=== PATIENT | male | born 1985 | race Two or more races ===

== ENCOUNTER 2024-03-06 12:17 | Inpatient (IN) | payer MEDICAID, SELFPAY ==
[2024-03-06] VITALS (9 sets, daily range): BP systolic 136–166; BP diastolic 95–102; PULSE 99–141; RESP 16–20; TEMP 36.1–37.4; O2SAT 97–98; BMI 25.5; BMI 26.2
--- NOTE | 2024-03-06 12:27 | EKG_ITS ---
[facility] Test Date: 2024-03-06 Pat Name: EVELYN MARTIN Department: Room: - Gender: Male [employer]: : 1985 Requested By: Inder Cheung (STEVE) Order Number: [id number] Reading MD: Inder Cheung (STEVE) Measurements Intervals [place] Rate: 130 P: 70 MI: 152 QRS: -9 QRSD: 82 T: 51 QT: 301 QTc: 443 Interpretive Statements SINUS TACHYCARDIA ABNORMAL RHYTHM ECG No previous ECG available for comparison /store/S0/[id number].pdf
--- NOTE | 2024-03-06 12:35 | EDNOTE_ITS ---
<Statement entered by Marleny Fournier MD - 03/07/24 16:22> As co-signing physician, I was present and available for consult prn. I concur with the plan and care as documented by the midlevel provider. ED General RME/HPI General Chief complaint: General Adult/Misc Complain Stated complaint: HIGH BLOOD SUGAR, HIGH BLOOD SUGAR Time Seen by Provider: 03/06/24 12:28 Arrival date/time: 03/06/24 12:17 CC: Shaking HPI patient presents to the ER with shaking. Patient admits to drinking every day last drink was last night. Patient has no medicines no allergies no primary care doctor. Patient denies nausea vomiting excessive urination excessive thirst no diarrhea. Patient admits to drinking Hussein Harvey 1 bottle a day for a long time . Related Data Home Medications ?Medication ?Instructions ?Recorded ?Confirmed No Known Home Medications 03/06/24 03/06/24 Allergies Allergy/AdvReac Type Severity Reaction Status Date / Time No Known Allergies Allergy Verified 03/06/24 12:19 Review of Systems Review of Systems Narrative Review of Systems: GEN: No fever, no chills, no weight loss EYES: No discharge, no visual changes, no pain HEENT: No ear pain, no congestion, no sore throat PULM: No shortness of breath, no cough, no congestion CV: No chest pain, no dyspnea on exertion, no palpitations GI: No nausea, no vomiting, no diarrhea, no pain, no constipation : No frequency, no urgency, no dysuria MUSC/SKEL:+shaking, No joint pain, no back pain SKIN: No rash PSYCH: No hallucinations, no depression HEME/LYMPH: No easy bleeding or bruising tendencies NEURO: No weakness, no headache Past Medical History Social History SMOKING STATUS: Never smoker ED Exam Narrative Physical exam: [General: In moderate discomfort not in any acute distress. CIWA 7 Head normocephalic HEENT: Within acceptable limits Neck is supple nontender Chest equal chest rise nontender to palpation Respiratory: Clear to auscultation no wheezes crackles or rubs CV: Rate rhythm is regular no murmurs rubs or clicks Abdomen is distended secondary to body habitus soft nontender no masses positive bowel sounds all 4 quadrants Back: No CVA tenderness no spinous process tenderness from cervical spine thoracic and lumbar spine Skin: Intact no petechiae rash induration ulceration or crepitus Extremities: Upper extremity tremens. Moving all extremity against resistance cap refill less than 2 seconds neurosensory intact Neuro: Awake alert oriented x3 Glascow coma 15 no focal deficits] Course Quality Measures none Orders Category Date Time Status Admit to Inpatient Status Routine Admission 03/06/24 16:12 Active Patient Condition Routine Admission 03/06/24 16:09 Ordered EKG (ED ONLY) *Do not use* NOW Care 03/06/24 12:27 Completed Neuro Check Q4H Care 03/06/24 16:09 Active Notify provider NEEDED Care 03/06/24 16:09 Active Saline [Insert IV] NOW Care 03/06/24 12:34 Active Seizure precautions NEEDED Care 03/06/24 16:10 Active Sequential Compression Device QSHIFT Care 03/06/24 16:09 Active EKG (ED Only) Stat Exams 03/06/24 12:27 Draft ABG [Arterial Blood Gas] Stat Lab 03/06/24 15:10 Completed Alcohol, Blood Medical Stat Lab 03/06/24 12:51 Completed B-Type Natriuretic Peptide Stat Lab 03/06/24 12:51 Completed Beta Hydroxybutyrate Stat Lab 03/06/24 12:51 Completed CBC AM DRAW Lab 03/07/24 05:00 Completed CBC AM DRAW Lab 03/08/24 05:00 Ordered CBC AM DRAW Lab 03/09/24 05:00 Ordered CBC Stat Lab 03/06/24 12:51 Completed Comprehensive Metabolic Panel AM DRAW Lab 03/07/24 05:42 Completed Comprehensive Metabolic Panel AM DRAW Lab 03/08/24 05:00 Ordered Comprehensive Metabolic Panel AM DRAW Lab 03/09/24 05:00 Ordered Comprehensive Metabolic Panel Stat Lab 03/06/24 12:51 Completed Drug Screen,Urine Stat Lab 03/06/24 14:25 Completed Hemoglobin A1C [Glycohemoglobin w (eAG)] Stat Lab 03/06/24 12:51 Completed Hepatitis Acute Panel Routine Lab 03/06/24 16:20 Completed LDH (Lactate Dehydrogenase) Stat Lab 03/06/24 12:51 Completed Lactate (Lactic Acid) Stat Lab 03/06/24 16:20 Completed Lipid Panel AM DRAW Lab 03/07/24 05:42 Completed Magnesium AM DRAW Lab 03/07/24 05:42 Completed Magnesium AM DRAW Lab 03/08/24 05:00 Ordered Magnesium AM DRAW Lab 03/09/24 05:00 Ordered Magnesium Stat Lab 03/06/24 12:51 Completed Partial Thromboplastin Time AM DRAW Lab 03/07/24 05:42 Completed Partial Thromboplastin Time Stat Lab 03/06/24 12:51 Completed Phosphorous AM DRAW Lab 03/07/24 05:42 Completed Phosphorous AM DRAW Lab 03/08/24 05:00 Ordered Phosphorous AM DRAW Lab 03/09/24 05:00 Ordered Prothrombin Time with INR AM DRAW Lab 03/07/24 05:42 Completed Prothrombin Time with INR Stat Lab 03/06/24 12:51 Completed Thyroid Stimulating Hormone AM DRAW Lab 03/07/24 05:42 Completed Troponin I Stat Lab 03/06/24 12:51 Completed Urinalysis Stat Lab 03/06/24 14:25 Completed Albuterol/Ipratr Rt Johnna [Duoneb Rt Johnna] Med 03/06/24 16:09 Active 3 ml INH Q2HR PRN Diazepam Inj [Valium Inj] Med 03/06/24 12:38 Discontinued 10 mg IVP X1 ONE Folic Acid Inj Med 03/06/24 16:15 Active 1 mg IVP QDAY Folic Acid Inj Med 03/06/24 13:26 Discontinued 1 mg IVP X1 ONE INSULIN LISPRO (AdmeLOG) [HumaLOG] Med 03/06/24 16:06 Discontinued 10 unit SC X1 ONE Magnesium Sulfate 2 GM Ivpb [Magnesium Sulfate Ivpb] Med 03/06/24 16:06 Discontinued 2 gm in 50 ml IV X1 Ondansetron Inj [Zofran Inj] Med 03/06/24 16:09 Active 4 mg IV Q6H PRN PHENobarbital Inj Med 03/06/24 15:55 Discontinued 230 mg IV X1 ONE Pantoprazole Inj [Protonix Inj] Med 03/06/24 16:15 Active 40 mg IVP QDAY Ringers Lactated 1000 ml [Lactated Ringers] 1,000 ml Med 03/06/24 16:08 Discontinued IV 500 mls/hr Sodium Chloride 0.9% 1000 ml [Ns] 1,000 ml Med 03/06/24 12:34 Discontinued IV 999 mls/hr Sodium Chloride 0.9% 1000 ml [Ns] 1,000 ml Med 03/06/24 15:07 Discontinued IV 999 mls/hr Thiamine Inj [Vitamin B-1 Inj] Med 03/06/24 16:15 Active 100 mg IVP QDAY Thiamine Inj [Vitamin B-1 Inj] 100 mg Med 03/06/24 13:26 Discontinued Sodium Chloride 0.9% [Ns] 100 ml IV X1 Code Status Routine Oth 03/06/24 16:09 Ordered Oxygen Delivery PRN RT 03/06/24 16:09 Active Vital Signs Vital signs: Vital Signs Temperature 99.4 F 03/06/24 12:28 Pulse Rate 141 H 03/06/24 12:28 Respiratory Rate 20 03/06/24 12:28 Blood Pressure 166/102 H 03/06/24 12:28 Pulse Oximetry (%) 97 03/06/24 12:28 Oxygen Delivery Method Room Air 03/06/24 12:[address] [facility] Patient data External records reviewed:: [facility] previous records Clinical information provided by:: patient and family Social determinants that could affect healthcare access:: alcohol use Patient has the following chronic illnesses:: Alcoholism How is presenting disease/condition affected by chronic disease/condition?: e xacerbated by Evaluation data The following diagnostics were reviewed and interpreted by me:: lab results, radiology exam(s) and EKG tracing(s) Lab and/or radiology exams considered but not ordered:: EKG performed at 1242 ventricular rate of 129 HI interval 160 QRS of 82 QTc of 375 no old EKG for comparison this is a tachycardia. CBC shows no leukocytosis there is an mild anemia no thrombocytopenia CMP shows a hyponatremia probably pseudohyponatremia hyperkalemia no renal impairment. Gap of 21. No transaminitis or T. bili elevation ABG shows a pH of 7.47 Glucose initially was 399 currently glucose is 2 10:58 units of insulin subcu. Interpretation Summary: Patient FELIX was initially 7 given 10 of Valium IV which calmed him down now the tremors are slowly returning at 1536. Glucose level is decreasing the patient is not in DKA. Patient's case was discussed with Dr. Camarillo who agrees to accept the patient for admission for Dr. Peraza. Medications Medications considered but not ordered:: None Medication administrations:: Medication Administration History Albuterol/Ipratropium (Albuterol/Ipratropium (Duoneb) Rt Johnna 3 Ml Nebu) 3 ml INH Q2HR PRN PRN Reason: SHORTNESS OF BREATH OR WHEEZE Stop: 04/05/24 16:08 Atorvastatin Calcium (Atorvastatin Calcium 20 Mg Tablet) 20 mg PO HS [facility] Stop: 04/06/24 20:59 Chlordiazepoxide HCl (Chlordiazepoxide Hcl 25 Mg Capsule) 25 mg PO Q8HR [facility] Stop: 03/11/24 17:44 Last Admin: 03/07/24 06:04 Dose: 25 mg Documented By: Admin: 03/06/24 22:07 Dose: 25 mg Documented By: Admin: 03/06/24 18:14 Dose: 25 mg Documented By: GM Dextrose (Dextrose 50%-Water Inj 50 Ml Syringe) 50 ml IV Q15MIN PRN PRN Reason: BG <50 OR BG <70 & pt unresponsive Stop: 04/05/24 16:16 Folic Acid (Folic Acid Inj 1 Mg/0.2 Ml) 1 mg IVP QDAY [facility] Stop: 04/05/24 16:14 Last Admin: 03/07/24 08:16 Dose: 1 mg Documented By: Admin: 03/06/24 16:11 Dose: Not Given Documented By: GM Non-Admin Reason: Duplicate Medication on eMAR Glucagon (Glucagon Inj 1 Mg Vial) 1 mg IM Q15MIN PRN PRN Reason: BG <70, and no IV access Insulin Human Lispro (Insulin Lispro (Admelog) 1 Unit/0.01 Ml Unit) 0 unit SC [facility]; Protocol Stop: 04/05/24 16:59 Last Admin: 03/07/24 11:24 Dose: 4 unit Documented By: TONY Co-signed By: HI Admin: 03/07/24 07:47 Dose: 4 unit Documented By: TONY Co-signed By: HI Admin: 03/06/24 22:07 Dose: 2 unit Documented By: TOMMY Co-signed By: WB Admin: 03/06/24 17:31 Dose: Not Given Documented By: KM Non-Admin Reason: Cancelled by Provider Ondansetron HCl (Ondansetron Inj 2 Mg/Ml Inj 2 Ml) 4 mg IV Q6H PRN; Protocol PRN Reason: NAUSEA OR VOMITING Stop: 04/05/24 16:08 Pantoprazole Sodium (Pantoprazole Inj 40 Mg Vial) 40 mg IVP QDAY [facility] Stop: 04/05/24 16:14 Last Admin: 03/07/24 08:16 Dose: 40 mg Documented By: Admin: 03/06/24 17:24 Dose: 40 mg Documented By: ARELIS Thiamine HCl (Thiamine Inj 100 Mg/Ml Vial 2 Ml) 100 mg IVP QDAY ASHLEY Stop: 04/05/24 16:14 Last Admin: 03/07/24 08:16 Dose: 100 mg Documented By: Admin: 03/06/24 16:11 Dose: Not Given Documented By: PIPPA Non-Admin Reason: Duplicate Medication on eMAR Discontinued Medications Diazepam (Diazepam Inj 5 Mg/Ml Vial 2 Ml) 10 mg IVP X1 ONE Stop: 03/06/24 12:39 Last Admin: 03/06/24 12:55 Dose: 10 mg Documented By: PIPPA Folic Acid (Folic Acid Inj 1 Mg/0.2 Ml) 1 mg IVP X1 ONE Stop: 03/06/24 13:27 Last Admin: 03/06/24 13:50 Dose: 1 mg Documented By: PIPPA Sodium Chloride (Ns) 1,000 mls @ 999 mls/hr IV .Q1H1M ONE Stop: 03/06/24 13:34 Last Infusion: 03/06/24 13:55 Dose: Infused Documented By: Admin: 03/06/24 12:58 Dose: 999 mls/hr Documented By: PIPPA Thiamine HCl 100 mg/ Sodium (Chloride) 101 mls @ 202 mls/hr IV X1 ONE Stop: 03/06/24 13:55 Last Infusion: 03/06/24 14:30 Dose: Infused Documented By: Admin: 03/06/24 13:55 Dose: 202 mls/hr Documented By: PIPPA Sodium Chloride (Ns) 1,000 mls @ 999 mls/hr IV .Q1H1M ONE Stop: 03/06/24 16:07 Last Infusion: 03/06/24 16:20 Dose: Infused Documented By: Admin: 03/06/24 15:12 Dose: 999 mls/hr Documented By: ARELIS Magnesium Sulfate (Magnesium Sulfate Ivpb) 2 gm in 50 mls @ 25 mls/hr IV X1 ONE Stop: 03/06/24 18:05 Last Infusion: 03/06/24 19:28 Dose: Infused Documented By: Admin: 03/06/24 17:17 Dose: 25 mls/hr Documented By: ARELIS Lactated Ringer's (Lactated Ringers) 1,000 mls @ 500 mls/hr IV .Q2H ONE Stop: 03/06/24 18:07 Last Admin: 03/06/24 17:18 Dose: Not Given Documented By: PIPPA Non-Admin Reason: Discontinued Sodium Chloride (Ns) 1,000 mls @ 40 mls/hr IV .Q24H ASHLEY Stop: 04/05/24 17:59 Lactated Ringer's (Lactated Ringers) 1,000 mls @ 150 mls/hr IV .Q6H40M ONE Stop: 03/06/24 22:47 Last Admin: 03/06/24 18:18 Dose: 150 mls/hr Documented By: PIPPA Sodium Chloride (Ns) 1,000 mls @ 999 mls/hr IV .Q1H1M ONE Stop: 03/06/24 17:35 Last Infusion: 03/06/24 18:19 Dose: Infused Documented By: Admin: 03/06/24 17:16 Dose: 999 mls/hr Documented By: ARELIS Magnesium Sulfate (Magnesium Sulfate Ivpb) 2 gm in 50 mls @ 25 mls/hr IV X1 ONE Stop: 03/06/24 20:29 Last Admin: 03/06/24 19:39 Dose: 25 mls/hr Documented By: INDIGO Lactated Ringer's (Lactated Ringers) 500 mls @ 999 mls/hr IV .Q31M ONE Stop: 03/07/24 11:26 Lactated Ringer's (Lactated Ringers) 1,000 mls @ 999 mls/hr IV .Q1H1M ONE Stop: 03/07/24 12:06 Last Admin: 03/07/24 11:19 Dose: 999 mls/hr Documented By: TONY Insulin Glargine (Insulin Glargine (Lantus) 5 Unit/0.05 Ml (Per 5 Units)) 10 unit SC HS ASHLEY Stop: 04/05/24 20:59 Insulin Human Lispro (Insulin Lispro (Admelog) 1 Unit/0.01 Ml Unit) 10 unit SC X1 ONE Stop: 03/06/24 16:07 Last Admin: 03/06/24 17:25 Dose: 10 unit Documented By: ARELIS Co-signed By: PIPPA Phenobarbital Sodium (Phenobarbital Inj 130 Mg/1 Ml Vial) 230 mg IV X1 ONE Stop: 03/06/24 15:56 Last Admin: 03/06/24 16:07 Dose: 230 mg Documented By: ROSE Phenobarbital Sodium (Phenobarbital Inj 130 Mg/1 Ml Vial) 150 mg IV Q8HR ASHLEY Stop: 03/08/24 14:01 Last Admin: 03/07/24 06:05 Dose: 150 mg Documented By: Admin: 03/06/24 22:08 Dose: 150 mg Documented By: TOMMY Potassium Chloride (Potassium Chloride 20 Meq Tabcr) 40 meq PO X1 ONE Stop: 03/06/24 16:23 Last Admin: 03/06/24 17:24 Dose: 40 meq Documented By: ARELIS Potassium Chloride (Potassium Chloride 20 Meq Tabcr) 40 meq PO X1 ONE Stop: 03/06/24 19:01 Last Admin: 03/06/24 19:38 Dose: 40 meq Documented By: INDIGO Potassium Phos/Sodium Phos (N[facility] 1 Packet (1.5 Gm)) 1 packet PO X1 ONE Stop: 03/07/24 08:58 Last Admin: 03/07/24 10:21 Dose: 1 packet Documented By: TONY None Consultations Consultation(s) initiated? (list below): No Diagnosis Differential Diagnosis ED Complaint MDM: Alcohol withdrawal diabetes new onset sepsis Most likely diagnosis given after review of the tests above:: Alcohol withdrawal diabetes new onset sepsis Admission Indicated Admission indicated?: indicated Explain why admission is indicated or not indicated:: Requires further medical management Admission Request Was there a request for admission?: No Disposition Plan Disposition Plan: Admit Medical Decision Making Differential Diagnosis Differential Diagnosis: Alcohol withdrawal diabetes new onset sepsis Lab Data 03/07/24 05:00 03/07/24 05:42 Labs: Lab Results 03/06/24 03/06/24 03/06/24 Range/Units 12:51 14:25 15:10 WBC 8.5 (3.8-10.6) Thou/mm3 RBC 3.85 L (4.50-5.90) Miln/mm3 Hgb 11.1 L (13.5-16.0) g/dL Hct 31.2 L (41.0-53.0) % MCV 81 (80-100) fL MCH 28.8 (25.0-35.0) pg MCHC 35.6 (31.0-37.0) g/dl RDW Std Deviation 41.1 (35.1-43.9) fL Plt Count 70 L (140-440) Thou/mm3 Neut % (Auto) 76 (37-80) % Lymph % (Auto) 14 (10-50) % [place] % (Auto) 7 (0-12) % Eos % (Auto) 0 (0-10) % Baso % (Auto) 2 (0-2.5) % Neut # (Auto) 6.5 (1.8-7.7) Thou/mm3 Lymph # (Auto) 1.2 (1.0-4.8) Thou/mm3 [place] # (Auto) 0.6 (0.0-0.8) Thou/mm3 Eos # (Auto) 0.0 (0.0-0.5) Thou/mm3 Baso # (Auto) 0.2 (0.0-0.2) Thou/mm3 Immature Gran # (Auto) 0.03 H (0.00-0.00) Thou/mm3 Absolute Nucleated RBC 0.00 (0.00-0.00) Thou/mm3 Immature Gran % 0 (0-0) % Nucleated RBC % 0 (0) /100 WBC PT 14.7 H (9.0-12.2) Seconds INR 1.4 H (0.9-1.3) APTT 29.7 (22.0-36.0) Seconds Puncture Site Left Radial ABG pH 7.46 H (7.35-7.45) ABG pCO2 32 (32.0-48.0) mmHg ABG pO2 93 (83-108) mmHg ABG HCO3 23 (20-26) mEq/L ABG O2 Saturation 98 (91-98) % ABG Base Excess -1 (-3-3) FiO2 21 % Sodium 124 L (136-145) mMol/L Potassium 3.3 L (3.4-5.1) mMol/L Chloride 86 L (98-107) mMol/L Carbon Dioxide 17.2 L (20.0-31.0) mMol/L Anion Gap 21 H (7-16) BUN < 5 L (9-23) mg/dL Creatinine 0.7 (0.6-1.3) mg/dL Estim Creat Clear Calc 131.7 (>60) mL/min eGFR > 60 (60 - ) See Note BUN/Creatinine Ratio 7 L (12-20) Ratio Glucose 399 H (74-106) mg/dL Estimated Ave Glu mg/dL 246 H (80-131) mg/dL Hemoglobin A1c 10.2 H (4.8-6.0) % Hgb Calculated Osmolality 263 L (275-295) Calcium 8.7 (8.3-10.6) mg/dL Corrected Calcium 8.9 (8.5-10.1) mg/dL Magnesium 1.5 L (1.6-2.6) mg/dL Total Bilirubin 4.3 H (0.3-1.2) mg/dL AST 144 H (0-34) U/L ALT 39 (10-49) U/L Alkaline Phosphatase 285 H (46-116) U/L Lactate Dehydrogenase 355 H (120-246) U/L Troponin I < 0.002 (0.0-0.045) ng/mL B-Natriuretic Peptide < 20 (0-100) pg/mL Total Protein 8.5 H (5.7-8.2) gm/dL Albumin 3.8 (3.5-5.0) gm/dL Globulin 4.7 H (2.3-3.5) gm/dL Albumin/Globulin Ratio 0.8 L (1.2-2.2) Beta-Hydroxybutyrate/Acetoacetate 0.1 (<0.6) mmol/L Ur Collection Type Clean Catch Urine Color Lt-Yellow (Lt Yel-Yel) Urine Clarity Clear (Clear/Hazy) Urine pH 6.5 (5.0-7.0) Ur Specific [place] 1.020 (1.001-1.035) Urine Protein Negative (Neg - Trace) Urine Glucose (UA) 4+ A (Negative) Urine Ketones Negative (Negative) Urine Blood Negative (Negative) Urine Nitrite Negative (Negative) Urine Bilirubin Negative (Negative) Urine Urobilinogen (Auto) Negative (0.0-1.0) mg/dL Ur Leukocyte Esterase Negative (Negative) Urine RBC 3 (0-3) /hpf Urine WBC 1 (0-5) /hpf Ur Squamous Epith Cells 0 (0-5) /hpf Urine Bacteria None (None) Urine Opiates Screen Negative (Negative) Urine Fentanyl Screen Negative (Negative) Ur Barbiturates Screen Negative (Negative) U Amphetamin/Meth Scrn Negative (Negative) U Benzodiazepines Scrn Negative (Negative) U Cocaine Metab Screen Negative (Negative) U Marijuana (THC) Screen Negative (Negative) Ethyl Alcohol 85.6 H (0-10.0) mg/dL Misc Test Result Platelets confirmed Discharge Plan Plan Patient Disposition: Admit Acute Care w/in Hospital Patient condition on transfer: Stable Problem List Clinical Impression: Diabetes mellitus, new onset, Alcohol withdrawal 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
[2024-03-06] MEDS: DIAZEPAM INJ 5 MG/ML VIAL 2 ML 10 MG IVP (12:55)
[2024-03-06] MEDS: SODIUM CHLORIDE 0.9% 1000 ML 1,000 ML 999 ML IV ×3 (12:58→17:16)
[2024-03-06 13:00] LABS: Basophils # (Auto) 0.2 Thou/mm3 (0.0-0.2); Basophils % (Auto) 2 % (0-2.5); Eosinophils % (Auto) 0 % (0-10); Hematocrit 31.2 % (41.0-53.0); Hemoglobin 11.1 g/dL (13.5-16.0); Immature Granulocytes % (Auto) 0 % (0-0); Immature Granulocytes Auto 0.03 Thou/mm3 (0.00-0.00); Lymphocytes # (Auto) 1.2 Thou/mm3 (1.0-4.8); Lymphocytes % (Auto) 14 % (10-50); Mean Corpuscular HGB Conc 35.6 g/dl (31.0-37.0); Mean Corpuscular Hemoglobin 28.8 pg (25.0-35.0); Mean Corpuscular Volume 81 fL (80-100); Monocytes # (Auto) 0.6 Thou/mm3 (0.0-0.8); Monocytes % (Auto) 7 % (0-12); Neutrophils # (Auto) 6.5 Thou/mm3 (1.8-7.7); Neutrophils % (Auto) 76 % (37-80); Nucleated Red Blood Cell % 0 /100 WBC (0); RDW Standard Deviation 41.1 fL (35.1-43.9); Red Blood Count 3.85 Miln/mm3 (4.50-5.90); White Blood Count 8.5 Thou/mm3 (3.8-10.6)
[2024-03-06 13:03] LABS: Beta Hydroxybutyrate 0.1 mmol/L (<0.6)
[2024-03-06 13:13] LABS: INR 1.4 (0.9-1.3); Partial Thromboplastin Time 29.7 Seconds (22.0-36.0); Prothrombin Time 14.7 Seconds (9.0-12.2)
[2024-03-06 13:15] LABS: Glucose Estimated Average 246 mg/dL (80-131); Hemoglobin A1C 10.2 % Hgb (4.8-6.0)
[2024-03-06 13:16] LABS: Platelet Count 70 Thou/mm3 (140-440)
[2024-03-06 13:18] LABS: Alanine Aminotransferase 39 U/L (10-49); Albumin, Serum 3.8 gm/dL (3.5-5.0); Albumin/Globulin Ratio 0.8 (1.2-2.2); Alcohol, Blood Medical 85.6 mg/dL (0-10.0); Alkaline Phosphatase 285 U/L (46-116); Anion Gap 21 (7-16); Aspartate Amino Transferase 144 U/L (0-34); BUN/Creatinine Ratio 7 Ratio (12-20); Bilirubin,Total 4.3 mg/dL (0.3-1.2); Blood Urea Nitrogen < 5 mg/dL (9-23); Calcium 8.7 mg/dL (8.3-10.6); Calcium (Corrected) 8.9 mg/dL (8.5-10.1); Carbon Dioxide 17.2 mMol/L (20.0-31.0); Chloride 86 mMol/L (98-107); Creatinine (Component) 0.7 mg/dL (0.6-1.3); Estimated Creatinine Clearance 131.7 mL/min (>60); Globulin 4.7 gm/dL (2.3-3.5); Glucose 399 mg/dL (74-106); LDH (Lactate Dehydrogenase) 355 U/L (120-246); Magnesium 1.5 mg/dL (1.6-2.6); Osmolality,Calculated 263 (275-295); Potassium 3.3 mMol/L (3.4-5.1); Sodium 124 mMol/L (136-145); Total Protein 8.5 gm/dL (5.7-8.2); Troponin I < 0.002 ng/mL (0.0-0.045); eGFR > 60 See Note
[2024-03-06 13:22] LABS: B-Type Natriuretic Peptide < 20 pg/mL (0-100)
[2024-03-06 13:42] LABS: Slide Review Platelets confirmed
[2024-03-06] MEDS: FOLIC ACID INJ 1 MG/0.2 ML IVP (13:50)
[2024-03-06] MEDS: THIAMINE INJ 100 MG in SODIUM CHLORIDE 0.9% 100 ML 202 MG IV (13:55)
[2024-03-06 14:37] LABS: Collection Type, Urine Clean Catch; Squamous Epithelial Cell,Urine 0 /hpf (0-5)
[2024-03-06 14:42] LABS: Bilirubin,Urine Negative (Negative); Blood,Urine Negative (Negative); Clarity,Urine Clear (Clear/Hazy); Color,Urine Lt-Yellow (Lt Yel-Yel); Glucose, Urine 4+ (Negative); Ketones,Urine Negative (Negative); Leukocyte Esterase,Urine Negative (Negative); Nitrite,Urine Negative (Negative); PH,Urine 6.5 (5.0-7.0); Protein,Urine Negative (Neg - Trace); RBC,Urine 3 /hpf (0-3); Urobilinogen,Urine Negative mg/dL (0.0-1.0); WBC,Urine 1 /hpf (0-5)
[2024-03-06 14:46] LABS: Amphetamine/Methamp Scrn,U Negative (Negative); Barbiturate Screen,Urine Negative (Negative); Benzodiazepines Screen,Urine Negative (Negative); Benzoylecgonine Screen, Ur Negative (Negative); Fentanyl Screen,Urine Negative (Negative); Opiate Screen,Urine Negative (Negative); THC Screen,Urine Negative (Negative)
[2024-03-06 15:23] LABS: Base Excess -1 (-3-3); HCO3 23 mEq/L (20-26); Inspired Oxygen, FIO2 21 %; O2 Saturation 98 % (91-98); PCO2 32 mmHg (32.0-48.0); PO2 93 mmHg (83-108); pH, Arterial 7.46 (7.35-7.45)
[2024-03-06 15:26] LABS: Allen Test Not Performed; Puncture Site Left Radial
[2024-03-06] MEDS: PHENobarbital INJ 130 MG/1 ML VIAL 230 MG IV (16:07)
--- NOTE | 2024-03-06 16:20 | ESHP_ITS ---
<Statement entered by Nicolás Camarillo MD - 03/06/24 18:10> 38-year-old male with no documented past medical history came to the ED with chief complaint of bilateral hand shaking. He has been drinking alcohol(Hussein Harvey) every day since few years. Labs showed elevated blood glucose, A1c of 10.1. Anion gap metabolic acidosis and lactic acidosis. Most likely secondary to dehydration and alcohol use. His beta hydroxybutyrate was negative. On examination his CIWA was 13 started on phenobarbital. Will follow-up on ultrasound of abdomen, [facility] protocol. Diabetic management. I discussed with and supervised my co-resident involved in the care of this patient. I agree with the assessment and plan as documented above. Nicolás Camarillo,PGY-3 Disclaimer: Despite multiple revisions, due to the dictation software being used, the document below may not be free of grammatical errors including phonetic/typographic errors. However, this does not deter from our commitment to providing health care in the patient's best interest in mind. Documentation for date of: 03/06/24 HPI History of Present Illness Chief complaint: Shaking History of present illness: HPI: Patient is a 38-year-old male with past medical history significant for GERD. Patient presents today with a chief complaint of shaking. Patient states that shaking started this morning. His last drink of alcohol was last night. He said that these episodes have happened in the past when he stopped drinking alcohol but he never came into the hospital. Denies any seizures, loss of consciousness, Headache, nausea/vomiting, diarrhea. Also denies any visual/auditory hallucinations at this time. Upon review patient also denies any cough, fever, chills, chest pain/pressure, SOB, PND, orthopnea. Also denies any sick contacts/recent travel. According to patient's he drinks 1 bottle of alcohol daily, she is unsure of which type. Since his father 1 year ago he started drinking alcohol heavily. ED course: BP 166/102, pulse 141, RR 20, temp 99.4 F, SpO2 97%. Labs significant for corrected NA 131, K3.3, CL 86, BUN 5, CR 0.7, Mg 1.5, HbA1c 10.2, PT 14.7, INR 1.4, Hb 11.1, HCT 31.2, PLT 70, T. bili 4.3, AST 144, ALT 39, ALP 285, LDH 355, troponin <0.002, BNP <20, beta hydroxybutyrate 0.1. Urinalysis significant for 4+ glucose. pH 7.46. EKG significant for sinus tachycardia, rate [address] changes. In the ED patient received diazepam 10 Mg IV x 1, normal saline 2L IVF bolus, thiamine 100 Mg x 1 and phenobarbital to 30 Mg IV x 1. Patient will be admitted for alcohol withdrawal and new onset uncontrolled diabetes mellitus type 2. Review of Systems Review of Systems Narrative Review of Systems: GENERAL: Denies fever/chills or diaphoresis. HEENT: Denies headaches or visual changes. Denies discharge. Neuro: As above CARDIO: Denies chest pain or palpitations. PULM: Denies SOB, couging or wheezing. GI: Denies abdominal pain, N/V/C/D. Reports having BMs. URO: Denies buring/itching/pain/urinary changes. MSK/EXT/SKIN: Denies joint/skeletal/muschle pain, issues/changes in upper or lower extremities, itchiness, or superficial pain. PSYCH: Cooperative, pleasant mood & affect. The rest of the review of systems is otherwise negative. 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 Baseline ambulates independently and carries out all ADLs independently Exam Vital Signs Temp Pulse Resp BP Pulse Ox O2 Del Method 98.6 F 113 H 20 142/96 H 97 Room Air 03/06/24 14:19 03/06/24 14:19 03/06/24 14:19 03/06/24 14:19 03/06/24 14:19 03/06/24 14:19 Narrative Exam Constitutional Alert, oriented x 3 and tremulous. Young male, anicteric, diaphoretic HEENT Vision grossly intact. Patent nares. Trachea midline. Poor dentition Respiratory Chest normal on inspection and clear auscultation bilaterally Cardiovascular S1 and S2 audible, RRR. No murmurs carotid bruit. No gross JVD. Abdominal Soft, obese and non tender to palpation in all quadrants. BS + Genitourinary No bladder tenderness, no flank pain. Normal to palpation Musculoskeletal Extremities tone within normal limits. No LE edema. Neurological CN II - XII grossly intact. Extremity motor and sensation grossly intact. A sterixis negative, resting tremor, intention tremor. Skin Warm, dry and intact. No apparent lesions. Psychiatric Patient has good affect, is cooperative Results: Labs 03/07/24 05:00 03/07/24 05:42 Labs: Short CBC 03/06/24 Range/Units 12:51 WBC 8.5 (3.8-10.6) Thou/mm3 Hgb 11.1 L (13.5-16.0) g/dL Hct 31.2 L (41.0-53.0) % Plt Count 70 L (140-440) Thou/mm3 BMP 03/06/24 12:51 Sodium 124 L Potassium 3.3 L Chloride 86 L Carbon Dioxide 17.2 L BUN < 5 L Creatinine 0.7 Glucose 399 H Calcium 8.7 Cardiac Enzymes 03/06/24 Range/Units 12:51 Troponin I < 0.002 (0.0-0.045) ng/mL Liver Function 03/06/24 Range/Units 12:51 Total Bilirubin 4.3 H (0.3-1.2) mg/dL AST 144 H (0-34) U/L ALT 39 (10-49) U/L Alkaline Phosphatase 285 H (46-116) U/L Albumin 3.8 (3.5-5.0) gm/dL Urine 03/06/24 Range/Units 14:25 Urine Color Lt-Yellow (Lt Yel-Yel) Urine Clarity Clear (Clear/Hazy) Urine pH 6.5 (5.0-7.0) Ur Specific [place] 1.020 (1.001-1.035) Urine Protein Negative (Neg - Trace) Urine Glucose (UA) 4+ A (Negative) ABG Interpretation ABG results: 03/06/24 15:10 ABG pH 7.46 H ABG pCO2 32 ABG pO2 93 ABG HCO3 23 ABG O2 Saturation 98 ABG Base Excess -1 Quality Measures Quality Measures VTE prophylaxis (SCDs) Medications Home Medications and Allergies Home Medications ?Medication ?Instructions ?Recorded ?Confirmed ?Type No Known Home Medications 03/06/24 03/06/24 History Allergies Allergy/AdvReac Type Severity Reaction Status Date / Time No Known Allergies Allergy Verified 03/06/24 12:19 Visit Medications Albuterol/Ipratropium (Albuterol/Ipratropium (Duoneb) Rt Johnna 3 Ml Nebu) 3 ml INH Q2HR PRN PRN Reason: SHORTNESS OF BREATH OR WHEEZE Stop: 04/05/24 16:08 Dextrose (Dextrose 50%-Water Inj 50 Ml Syringe) 50 ml IV Q15MIN PRN PRN Reason: BG <50 OR BG <70 & pt unresponsive Stop: 04/05/24 16:16 Folic Acid (Folic Acid Inj 1 Mg/0.2 Ml) 1 mg IVP QDAY [facility] Stop: 04/05/24 16:14 Last Admin: 03/06/24 16:11 Dose: Not Given Glucagon (Glucagon Inj 1 Mg Vial) 1 mg IM Q15MIN PRN PRN Reason: BG <70, and no IV access Magnesium Sulfate (Magnesium Sulfate Ivpb) 2 gm in 50 mls @ 25 mls/hr IV X1 ONE Stop: 03/06/24 18:05 Lactated Ringer's (Lactated Ringers) 1,000 mls @ 500 mls/hr IV .Q2H ONE Stop: 03/06/24 18:07 Sodium Chloride (Ns) 1,000 mls @ 40 mls/hr IV .Q24H ASHLEY Stop: 04/05/24 17:59 Insulin Glargine (Insulin Glargine (Lantus) 5 Unit/0.05 Ml (Per 5 Units)) 10 unit SC HS [facility] Stop: 04/05/24 20:59 Ondansetron HCl (Ondansetron Inj 2 Mg/Ml Inj 2 Ml) 4 mg IV Q6H PRN; Protocol PRN Reason: NAUSEA OR VOMITING Stop: 04/05/24 16:08 Pantoprazole Sodium (Pantoprazole Inj 40 Mg Vial) 40 mg IVP QDAY [facility] Stop: 04/05/24 16:14 Thiamine HCl (Thiamine Inj 100 Mg/Ml Vial 2 Ml) 100 mg IVP QDAY [facility] Stop: 04/05/24 16:14 Last Admin: 03/06/24 16:11 Dose: Not Given Discontinued Medications Diazepam (Diazepam Inj 5 Mg/Ml Vial 2 Ml) 10 mg IVP X1 ONE Stop: 03/06/24 12:39 Last Admin: 03/06/24 12:55 Dose: 10 mg Folic Acid (Folic Acid Inj 1 Mg/0.2 Ml) 1 mg IVP X1 ONE Stop: 03/06/24 13:27 Last Admin: 03/06/24 13:50 Dose: 1 mg Sodium Chloride (Ns) 1,000 mls @ 999 mls/hr IV .Q1H1M ONE Stop: 03/06/24 13:34 Last Infusion: 03/06/24 13:55 Dose: Infused Thiamine HCl 100 mg/ Sodium (Chloride) 101 mls @ 202 mls/hr IV X1 ONE Stop: 03/06/24 13:55 Last Infusion: 03/06/24 14:30 Dose: Infused Sodium Chloride (Ns) 1,000 mls @ 999 mls/hr IV .Q1H1M ONE Stop: 03/06/24 16:07 Last Admin: 03/06/24 15:12 Dose: 999 mls/hr Insulin Human Lispro (Insulin Lispro (Admelog) 1 Unit/0.01 Ml Unit) 10 unit SC X1 ONE Stop: 03/06/24 16:07 Phenobarbital Sodium (Phenobarbital Inj 130 Mg/1 Ml Vial) 230 mg IV X1 ONE Stop: 03/06/24 15:56 Last Admin: 03/06/24 16:07 Dose: 230 mg Assessment & Plan Plan Patient is a 38-year-old male with past medical history significant for GERD. Patient presents today with a chief complaint of shaking. Patient will be admitted for alcohol withdrawal and new onset uncontrolled diabetes mellitus type 2. 1. Alcohol withdrawal 2. Alcohol use disorder Patient states that shaking started this morning. His last drink of alcohol was last night. According to patient's he drinks 1 bottle of alcohol daily, she is unsure of which type. Since his father 1 year ago he started drinking alcohol heavily. On exam patient was tremulous, diaphoretic and in mild distress. Phenobarbital 260 Mg IV x 1 given in the ED Patient will be scheduled on phenobarbital and chlordiazepoxide. He will not be started on CIWA protocol as he is already on phenobarbital and benzodiazepines scheduled. Plan: - Negative swallow eval ? Head of bed elevation 30 degrees ? Seizure precautions ? Aspiration precautions ? Neurochecks every 4 hourly - Banana bag ? Phenobarbital 150 Mg IV 3 times daily ? Chlordiazepoxide 25 Mg p.o. Q8 hourly ? Patient extensively counseled on alcohol cessation 3. Newly diagnosed uncontrolled diabetes mellitus type 2 On admission patient's blood glucose 399. HbA1c 10.1% pH 7.46 and beta hydroxybutyrate 0.1. Urinalysis significant for 4+ glucose Lactic acid 7.6 DKA and HHS ruled out due to normal pH and negative beta hydroxybutyrate. Patient has newly diagnosed uncontrolled DM type II Patient received 2 L normal saline IVF bolus in the ED Plan: - Clear liquid diet with diabetic restrictions in place once SWALLOW eval passed ? Trend lactate every 6 hourly ? 1L normal saline IVF bolus ? Ringer's lactate maintenance fluid 150 cc?HR ? Insulin lispro 10 units SC x 1 ? Insulin glargine tablets SC at bedtime as basal insulin - Sliding scale insulin to cover for any glucose spikes 4. Possible alcoholic hepatitis 5. Coagulopathy 6. Thrombocytopenia 7. Elevated T. bili 8. Transaminitis According to patient's he drinks 1 bottle of alcohol daily, she is unsure of which type. Since his father 1 year ago he started drinking alcohol heavily. On exam Valles sign was negative and patient has no abdominal pain PT 14.7, INR 1.4, APTT 29.7. Plt 70 Total bilirubin 4.3 AST 144, ALT 39, ALT 25, LDH 255 U tox positive for alcohol DDx: Alcoholic hepatitis, autoimmune hepatitis, Huang disease, hemochromatosis Madrey score : 25.9. Good prognosis Meld?NA score: 21 points; 7-10% estimated 90-day mortality Child-Roa ; class B. Indication for transplant evaluation. Abdominal surgery perioperative mortality 30%. Plan: ? Will avoid Tylenol or NSAIDs at this point ? Ordered workup for autoimmune hepatitis including IgG,BENOIT, LKM1,ALC1, ceruloplasmin, iron panel and ferritin ? Ordered liver ultrasound to assess for signs of cirrhosis and gallbladder thickening. 7. Normocytic anemia 8. Hypokalemia 9. Hypomagnesemia 10. Pseudohyponatremia 11. Hypocholoremia On admission patient Hb 11.1, MCV 81. No previous labs available for comparison K3.3 and Mg 1.5, Cl 86 NA 124 and corrected NA 131 Plan: ? KCl 40 Mg p.o. x 2 ? Magnesium sulfate 2 g IV x 1 ? Workup for anemia including iron panel, B12, folate ordered Health maintenance: Disposition: Seizure protocol and alcohol withdrawal treatment with phenobarbital chlordiazepoxide. IV fluids and insulin for newly diagnosed uncontrolled diabetes Diet: Clear liquid with diabetic restriction Lines: pIVs GI Prophylaxis: Pantoprazole IV Thrombo Prophylaxis: SCDs Code status: FULL CODE Plan of care discussed with Attending Dr. Peraza and PGY3 Dr. Rabia Hilliard MD PGY 1 Attending Provider Attestation/Addendum I, Bisi Peraza, , attest that I was physically present for the gomez portions of the service and evaluated the patient with the resident and I reviewed and discussed the case with the resident and agree with the resident's findings and plans of care as documented above Patient is a 38-year-old male with past no significant past medical history who presents to ED with worsening tremulous of his bilateral hands. Patient reports that he drinks 1 bottle of Hussein Harvey daily. He states he last drank at 4pm yesterday. Patient states that he does get hand tremors when he stops drinking, but never to this extent. Patient was also diaphoretic and anxious on presentation. He denied any active abdominal pain, but endorsed some nausea. He denied any tactile, auditory or visual hallucinations otherwise. Upon evaluation in the ED, patient is found to have a sodium of 124, K of 3.3, CO2 of 17.2, AG of 21, glucose of 399. Corrected sodium level is 131. A1c of 10.2. Patient states he was not aware that he had diabetes. Patient had received phenobarbital prior to my exam and continues to have visible b/l hand tremors and complains of headache, but CIWA score appears much improved in comparison to sign out. lactic acid noted to be 7.6. Suspect elevated lactic acid and anion gap to be 2/2 dehydration, will continue to give IV fluids and start patient on ISS. Patient is not in DKA. Patient denies any history of withdrawal seizures. WIll admit to telemetry for acute alcohol withdrawals. Counselled patient on cessation of alcohol use, as well as significant lab findings.
--- NOTE | 2024-03-06 16:20 | XR_ITS ---
Examination: Abdomen sonogram, Limited Date and time of exam: March 06, 2024 1659 hrs. Indications: Elevated bilirubin on laboratory examination today Technique: Real-time verdugo scale transabdominal sonographic images of the upper abdomen obtained. Findings: Negative for gallstones Gallbladder wall 0.4 cm mild edema Common bile duct 0.3 cm Pancreatic head 2.6 cm Liver 21.7 cm fatty infiltration no focal liver lesions Normal hepatopedal portal venous flow Patent IVC Impression: Acute calculus cholecystitis, consider HIDA scan or MRCP follow-up for confirmation Significant hepatomegaly, fatty liver
[2024-03-06 16:36] LABS: Lactate (Lactic Acid) 7.6 mMol/L (0.4-2.0)
[2024-03-06 17:05] LABS: Bilirubin,Direct 2.5 mg/dL (0.0-0.3)
[2024-03-06] MEDS: Magnesium Sulfate 2 GM Ivpb 2 GM/50 ML BAG IV ×2 (17:17→19:39)
[2024-03-06] MEDS: PANTOPRAZOLE INJ 40 MG VIAL IVP (17:24)
[2024-03-06] MEDS: POTASSIUM CHLORIDE 20 mEq TABCR 40 MEQ PO ×2 (17:24→19:38)
[2024-03-06] MEDS: INSULIN LISPRO (AdmeLOG) 1 UNIT/0.01 ML UNIT 10 UNIT SC (17:25)
[2024-03-06 17:45] LABS: Hepatitis A Antibody IgM Non Reactive (Non React); Hepatitis B Core Antibody IgM Non Reactive (Non React); Hepatitis B Surface Antigen Non Reactive (Non React); Hepatitis C Antibody Non Reactive (Non React)
[2024-03-06] MEDS: chlordiazePOXIDE HCl 25 MG CAPSULE PO ×2 (18:14→22:07)
[2024-03-06 18:16] LABS: Lactate (Lactic Acid) 6.6 mMol/L (0.4-2.0)
[2024-03-06] MEDS: RINGERS LACTATED 1000 ML 1,000 ML 150 ML IV (18:18)
--- NOTE | 2024-03-06 19:22 | PC.NURSE ---
SPOKE TO DR. DUARTE TO CLARIFY IF MD WANTS 2ND DOSE OF MAGNESIUM 2G IVPB TO BE ADMINISTERED; PER DR. PLUMMER, YES, ADMINISTER 2ND DOSE OF MAGNESIUM NOW.
[2024-03-06 19:26] LABS: Reflex Lactate? Y
[2024-03-06 21:14] LABS: Reflex Lactate? Y
[2024-03-06 21:40] LABS: Lactic Acid, 3 HR 3.6 mMol/L (0.4-2.0)
[2024-03-06] MEDS: INSULIN LISPRO (AdmeLOG) 1 UNIT/0.01 ML UNIT SC (22:07)
[2024-03-06] MEDS: PHENobarbital INJ 130 MG/1 ML VIAL 150 MG IV (22:08)
[2024-03-07] VITALS (7 sets, daily range): BP systolic 115–130; BP diastolic 82–94; PULSE 77–111; RESP 12–99; TEMP 35.8–36.2; O2SAT 96–99; BMI 25.9
[2024-03-07 00:54] LABS: Lactate (Lactic Acid) 2.4 mMol/L (0.4-2.0)
[2024-03-07 03:52] LABS: Reflex Lactate? Y
[2024-03-07 05:55] LABS: Lactic Acid, 3 HR 1.2 mMol/L (0.4-2.0)
[2024-03-07 05:58] LABS: Basophils # (Auto) 0.2 Thou/mm3 (0.0-0.2); Basophils % (Auto) 2 % (0-2.5); Eosinophils # (Auto) 0.2 Thou/mm3 (0.0-0.5); Eosinophils % (Auto) 2 % (0-10); Hematocrit 29.9 % (41.0-53.0); Hemoglobin 10.4 g/dL (13.5-16.0); Immature Granulocytes % (Auto) 0 % (0-0); Immature Granulocytes Auto 0.03 Thou/mm3 (0.00-0.00); Lymphocytes # (Auto) 2.3 Thou/mm3 (1.0-4.8); Lymphocytes % (Auto) 28 % (10-50); Mean Corpuscular HGB Conc 34.8 g/dl (31.0-37.0); Mean Corpuscular Hemoglobin 29.2 pg (25.0-35.0); Mean Corpuscular Volume 84 fL (80-100); Monocytes # (Auto) 0.7 Thou/mm3 (0.0-0.8); Monocytes % (Auto) 9 % (0-12); Neutrophils # (Auto) 4.8 Thou/mm3 (1.8-7.7); Neutrophils % (Auto) 59 % (37-80); Nucleated Red Blood Cell # 0.03 Thou/mm3 (0.00-0.00); Nucleated Red Blood Cell % 0 /100 WBC (0); RDW Standard Deviation 43.1 fL (35.1-43.9); Red Blood Count 3.56 Miln/mm3 (4.50-5.90); White Blood Count 8.2 Thou/mm3 (3.8-10.6)
[2024-03-07] MEDS: chlordiazePOXIDE HCl 25 MG CAPSULE PO ×3 (06:04→21:02)
[2024-03-07 06:05] LABS: Platelet Count 75 Thou/mm3 (140-440)
[2024-03-07] MEDS: PHENobarbital INJ 130 MG/1 ML VIAL 150 MG IV (06:05)
[2024-03-07 06:17] LABS: INR 1.3 (0.9-1.3); Partial Thromboplastin Time 29.8 Seconds (22.0-36.0); Prothrombin Time 13.9 Seconds (9.0-12.2)
[2024-03-07 06:45] LABS: Slide Review Platelets confirmed
[2024-03-07 06:56] LABS: Alanine Aminotransferase 38 U/L (10-49); Albumin, Serum 3.5 gm/dL (3.5-5.0); Albumin/Globulin Ratio 0.7 (1.2-2.2); Alkaline Phosphatase 251 U/L (46-116); Anion Gap 6 (7-16); Aspartate Amino Transferase 131 U/L (0-34); BUN/Creatinine Ratio 8 Ratio (12-20); Blood Urea Nitrogen < 5 mg/dL (9-23); Calcium 8.3 mg/dL (8.3-10.6); Calcium (Corrected) 8.7 mg/dL (8.5-10.1); Carbon Dioxide 29.2 mMol/L (20.0-31.0); Cardiac Risk Estimate 31.6 RATIO (4.0-6.7); Chloride 93 mMol/L (98-107); Cholesterol 348 mg/dL (132-200); Creatinine (Component) 0.6 mg/dL (0.6-1.3); Estimated Creatinine Clearance 142.5 mL/min (>60); Globulin 4.7 gm/dL (2.3-3.5); Glucose 171 mg/dL (74-106); HDL Cholesterol 11 mg/dL (40-60); Magnesium 2.2 mg/dL (1.6-2.6); Osmolality,Calculated 258 (275-295); Phosphorous 2.3 mg/dL (2.4-5.1); Potassium 4.3 mMol/L (3.4-5.1); Sodium 128 mMol/L (136-145); Thyroid Stimulating Hormone 2.29 uIU/mL (0.55-4.78); Total Protein 8.2 gm/dL (5.7-8.2); Triglycerides 534 mg/dL (30-150); eGFR > 60 See Note
[2024-03-07 07:13] LABS: Ferritin 1447 ng/mL (10.5-307.3); Total Iron Binding Capacity 175 mcg/dL (250-425)
[2024-03-07 07:24] LABS: Iron 165 mcg/dL (65-175); Percent Iron Saturation 94 % (20-55); Unsaturated Iron Binding 10 (225-295)
[2024-03-07 07:36] LABS: Folate 11.22 ng/mL (>5.38); Vitamin B12 1781 pg/mL (211-911)
[2024-03-07] MEDS: INSULIN LISPRO (AdmeLOG) 1 UNIT/0.01 ML UNIT SC ×4 (07:47→21:02)
[2024-03-07] MEDS: PANTOPRAZOLE INJ 40 MG VIAL IVP (08:16)
[2024-03-07] MEDS: THIAMINE INJ 100 MG/ML VIAL 2 ML IVP (08:16)
[2024-03-07] MEDS: FOLIC ACID INJ 1 MG/0.2 ML IVP (08:16)
--- NOTE | 2024-03-07 09:29 | ESPR_ITS ---
<Statement entered by Nicolás Camarillo MD - 03/07/24 14:18> Patient was examined bedside this morning, he was comfortably sitting in bed. CIWA score of 0. Will discontinue the phenobarbital. He is on Librium. Patient educated about new onset diabetes. His triglyceride was 530 with started him on low-dose statin. will continue to monitor anticipate discharge in next 24 to 48 hours. I discussed with and supervised my co-resident involved in the care of this patient. I agree with the assessment and plan as documented above. Nicolás Camarillo,PGY-3 Disclaimer: Despite multiple revisions, due to the dictation software being used, the document below may not be free of grammatical errors including phonetic/typographic errors. However, this does not deter from our commitment to providing health care in the patient's best interest in mind. Documentation for date of: 03/07/24 Subjective Subjective Interval history: Patient was seen and examined at bedside this AM. No acute exents overnight. Patient tolerating diet, adequate urine output and mentation is at baseline. Patient endorses improvement of his shaking. T. bili up trended to 5 from 4.3. Lipid panel significant for triglycerides 534, cholesterol 348, HDL 11 Phosphorus 2.3 CIWA 1 Will discontinue scheduled phenobarbital and continue chlordiazepoxide 25 Mg p.o. 3 times daily Exam Vital Signs Temp Pulse Resp BP Pulse Ox O2 Del Method 97.1 F 85 12 120/89 H 98 Room Air 03/07/24 04:00 03/07/24 04:00 03/07/24 04:00 03/07/24 04:00 03/07/24 04:00 03/07/24 04:00 Narrative Exam Constitutional Alert, oriented x 3 and comfortable. Young male, anicteric, facial tic HEENT Vision grossly intact. Patent nares. Trachea midline. Poor dentition Respiratory Chest normal on inspection and clear auscultation bilaterally Cardiovascular S1 and S2 audible, RRR. No murmurs carotid bruit. No gross JVD. Abdominal Soft, obese and non tender to palpation in all quadrants. BS + Genitourinary No bladder tenderness, no flank pain. Normal to palpation Musculoskeletal Extremities tone within normal limits. No LE edema. Neurological CN II - XII grossly intact. Extremity motor and sensation grossly intact. A sterixis negative, intention tremor?improved. CIWA 0 Skin Warm, dry and intact. No apparent lesions. Psychiatric Patient has good affect, is cooperative Objective Labs 03/07/24 05:00 03/07/24 05:42 Labs: Laboratory Results - last 24 hr 03/06/24 03/06/24 03/06/24 12:51 14:25 15:10 WBC 8.5 RBC 3.85 L Hgb 11.1 L Hct 31.2 L MCV 81 MCH 28.8 MCHC 35.6 RDW Std Deviation 41.1 Plt Count 70 L Neut % (Auto) 76 Lymph % (Auto) 14 [place] % (Auto) 7 Eos % (Auto) 0 Baso % (Auto) 2 Neut # (Auto) 6.5 Lymph # (Auto) 1.2 [place] # (Auto) 0.6 Eos # (Auto) 0.0 Baso # (Auto) 0.2 Immature Gran # (Auto) 0.03 H Absolute Nucleated RBC 0.00 Immature Gran % 0 Nucleated RBC % 0 PT 14.7 H INR 1.4 H APTT 29.7 Puncture Site Left Radial ABG pH 7.46 H ABG pCO2 32 ABG pO2 93 ABG HCO3 23 ABG O2 Saturation 98 ABG Base Excess -1 FiO2 21 Sodium 124 L Potassium 3.3 L Chloride 86 L Carbon Dioxide 17.2 L Anion Gap 21 H BUN < 5 L Creatinine 0.7 Estim Creat Clear Calc 131.7 eGFR > 60 BUN/Creatinine Ratio 7 L Glucose [address] Glu mg/dL 246 H Hemoglobin A1c 10.2 H Calculated Osmolality 263 L Lactic Acid Calcium 8.7 Corrected Calcium 8.9 Phosphorus Magnesium 1.5 L Iron TIBC Iron Saturation Unsat Iron Binding Ferritin Total Bilirubin 4.3 H Direct Bilirubin AST 144 H ALT 39 Alkaline Phosphatase 285 H Lactate Dehydrogenase 355 H Troponin I < 0.002 B-Natriuretic Peptide < 20 Total Protein 8.5 H Albumin 3.8 Globulin 4.7 H Albumin/Globulin Ratio 0.8 L Triglycerides Cholesterol LDL Cholesterol, Calc HDL Cholesterol Cholesterol/HDL Ratio Vitamin B12 Folate Beta-Hydroxybutyrate/Acetoacetate 0.1 TSH Ur Collection Type Clean Catch Urine Color Lt-Yellow Urine Clarity Clear Urine pH 6.5 Ur Specific [place] 1.020 Urine Protein Negative Urine Glucose (UA) 4+ A Urine Ketones Negative Urine Blood Negative Urine Nitrite Negative Urine Bilirubin Negative Urine Urobilinogen (Auto) Negative Ur Leukocyte Esterase Negative Urine RBC 3 Urine WBC 1 Ur Squamous Epith Cells 0 Urine Bacteria None Urine Opiates Screen Negative Urine Fentanyl Screen Negative Ur Barbiturates Screen Negative U Amphetamin/Meth Scrn Negative U Benzodiazepines Scrn Negative U Cocaine Metab Screen Negative U Marijuana (THC) Screen Negative Ethyl Alcohol 85.6 H Hepatitis A IgM Ab Hep Bs Antigen Hep B Core IgM Ab Hepatitis C Antibody Misc Test Result Platelets confirmed 03/06/24 03/06/24 03/06/24 16:20 18:00 21:24 WBC RBC Hgb Hct MCV MCH MCHC RDW Std Deviation Plt Count Neut % (Auto) Lymph % (Auto) [place] % (Auto) Eos % (Auto) Baso % (Auto) Neut # (Auto) Lymph # (Auto) [place] # (Auto) Eos # (Auto) Baso # (Auto) Immature Gran # (Auto) Absolute Nucleated RBC Immature Gran % Nucleated RBC % PT INR APTT Puncture Site ABG pH ABG pCO2 ABG pO2 ABG HCO3 ABG O2 Saturation ABG Base Excess FiO2 Sodium Potassium Chloride Carbon Dioxide Anion Gap BUN Creatinine Estim Creat Clear Calc eGFR BUN/Creatinine Ratio Glucose Estimated Ave Glu mg/dL Hemoglobin A1c Calculated Osmolality Lactic Acid 7.6 H* 6.6 H* 3.6 H Calcium Corrected Calcium Phosphorus Magnesium Iron TIBC Iron Saturation Unsat Iron Binding Ferritin Total Bilirubin Direct Bilirubin 2.5 H AST ALT Alkaline Phosphatase Lactate Dehydrogenase Troponin I B-Natriuretic Peptide Total Protein Albumin Globulin Albumin/Globulin Ratio Triglycerides Cholesterol LDL Cholesterol, Calc HDL Cholesterol Cholesterol/HDL Ratio Vitamin B12 Folate Beta-Hydroxybutyrate/Acetoacetate TSH Ur Collection Type Urine Color Urine Clarity Urine pH Ur Specific [place] Urine Protein Urine Glucose (UA) Urine Ketones Urine Blood Urine Nitrite Urine Bilirubin Urine Urobilinogen (Auto) Ur Leukocyte Esterase Urine RBC Urine WBC Ur Squamous Epith Cells Urine Bacteria Urine Opiates Screen Urine Fentanyl Screen Ur Barbiturates Screen U Amphetamin/Meth Scrn U Benzodiazepines Scrn U Cocaine Metab Screen U Marijuana (THC) Screen Ethyl Alcohol Hepatitis A IgM Ab Non Reactive Hep Bs Antigen Non Reactive Hep B Core IgM Ab Non Reactive Hepatitis C Antibody Non Reactive Misc Test Result 03/07/24 03/07/24 03/07/24 00:40 05:00 05:42 WBC 8.2 RBC 3.56 L Hgb 10.4 L Hct 29.9 L MCV 84 MCH 29.2 MCHC 34.8 RDW Std Deviation 43.1 Plt Count 75 L Neut % (Auto) 59 Lymph % (Auto) 28 [place] % (Auto) 9 Eos % (Auto) 2 Baso % (Auto) 2 Neut # (Auto) 4.8 Lymph # (Auto) 2.3 [place] # (Auto) 0.7 Eos # (Auto) 0.2 Baso # (Auto) 0.2 Immature Gran # (Auto) 0.03 H Absolute Nucleated RBC 0.03 H Immature Gran % 0 Nucleated RBC % 0 PT 13.9 H INR 1.3 APTT 29.8 Puncture Site ABG pH ABG pCO2 ABG pO2 ABG HCO3 ABG O2 Saturation ABG Base Excess FiO2 Sodium 128 L Potassium 4.3 D Chloride 93 L Carbon Dioxide 29.2 Anion Gap 6 L BUN < 5 L Creatinine 0.6 Estim Creat Clear Calc 142.5 eGFR > 60 BUN/Creatinine Ratio 8 L Glucose [address] Glu mg/dL Hemoglobin A1c Calculated Osmolality 258 L Lactic Acid 2.4 H 1.2 Calcium 8.3 Corrected Calcium 8.7 Phosphorus 2.3 L Magnesium 2.2 Iron 165 TIBC 175 L Iron Saturation 94 H Unsat Iron Binding 10 L Ferritin 1447 H Total Bilirubin 5.0 H D Direct Bilirubin AST 131 H ALT 38 Alkaline Phosphatase 251 H D Lactate Dehydrogenase Troponin I B-Natriuretic Peptide Total Protein 8.2 Albumin 3.5 Globulin 4.7 H Albumin/Globulin Ratio 0.7 L Triglycerides 534 H Cholesterol 348 H LDL Cholesterol, Calc TNP HDL Cholesterol 11 L Cholesterol/HDL Ratio 31.6 H Vitamin B12 1781 H Folate 11.22 Beta-Hydroxybutyrate/Acetoacetate TSH 2.29 Ur Collection Type Urine Color Urine Clarity Urine pH Ur Specific [place] Urine Protein Urine Glucose (UA) Urine Ketones Urine Blood Urine Nitrite Urine Bilirubin Urine Urobilinogen (Auto) Ur Leukocyte Esterase Urine RBC Urine WBC Ur Squamous Epith Cells Urine Bacteria Urine Opiates Screen Urine Fentanyl Screen Ur Barbiturates Screen U Amphetamin/Meth Scrn U Benzodiazepines Scrn U Cocaine Metab Screen U Marijuana (THC) Screen Ethyl Alcohol Hepatitis A IgM Ab Hep Bs Antigen Hep B Core IgM Ab Hepatitis C Antibody Misc Test Result Platelets confirmed ABG Interpretation ABG results: 03/06/24 15:10 ABG pH 7.46 H ABG pCO2 32 ABG pO2 93 ABG HCO3 23 ABG O2 Saturation 98 ABG Base Excess -1 Quality Measures Quality Measures VTE prophylaxis (SCDs) Assessment & Plan Assessment Current Active Medications: Generic Name Dose Route Start Last Admin Trade Name Freq PRN Reason Stop Dose Admin Albuterol/Ipratropium 3 ml 03/06/24 16:09 Albuterol/Ipratropium (Duoneb) Rt Johnna 3 Ml Nebu INH 04/05/24 16:08 Q2HR PRN SHORTNESS OF BREATH OR WHEEZE Chlordiazepoxide HCl 25 mg 03/06/24 17:45 03/07/24 06:04 Chlordiazepoxide Hcl 25 Mg Capsule PO 03/11/24 17:44 25 mg Q8HR ASHLEY Administration Dextrose 50 ml 03/06/24 16:17 Dextrose 50%-Water Inj 50 Ml Syringe IV 04/05/24 16:16 Q15MIN PRN BG <50 OR BG <70 & pt unresponsive Folic Acid 1 mg 03/06/24 16:15 03/07/24 08:16 Folic Acid Inj 1 Mg/0.2 Ml IVP 04/05/24 16:14 1 mg QDAY ASHLEY Administration Glucagon 1 mg 03/06/24 16:17 Glucagon Inj 1 Mg Vial IM Q15MIN PRN BG <70, and no IV access Insulin Human Lispro 0 unit 03/06/24 17:00 03/07/24 07:47 Insulin Lispro (Admelog) 1 Unit/0.01 Ml Unit SC 04/05/24 16:59 4 unit ACHS ASHLEY Administration Protocol Ondansetron HCl 4 mg 03/06/24 16:09 Ondansetron Inj 2 Mg/Ml Inj 2 Ml IV 04/05/24 16:08 Q6H PRN NAUSEA OR VOMITING Protocol Pantoprazole Sodium 40 mg 03/06/24 16:15 03/07/24 08:16 Pantoprazole Inj 40 Mg Vial IVP 04/05/24 16:14 40 mg QDAY ASHLEY Administration Phenobarbital Sodium 150 mg 03/06/24 21:00 03/07/24 06:05 Phenobarbital Inj 130 Mg/1 Ml Vial IV 03/08/24 14:01 150 mg Q8HR ASHLEY Administration Thiamine HCl 100 mg 03/06/24 16:15 03/07/24 08:16 Thiamine Inj 100 Mg/Ml Vial 2 Ml IVP 04/05/24 16:14 100 mg QDAY ASHLEY Administration Plan Patient is a 38-year-old male with past medical history significant for GERD. Patient presents today with a chief complaint of shaking. Patient will be admitted for alcohol withdrawal and new onset uncontrolled diabetes mellitus type 2. 1. Alcohol withdrawal?improving 2. Alcohol use disorder Patient states that shaking started this morning. His last drink of alcohol was last night. According to patient's he drinks 1 bottle of alcohol daily, she is unsure of which type. Since his father 1 year ago he started drinking alcohol heavily. On exam patient was tremulous, diaphoretic and in mild distress. Phenobarbital 260 Mg IV x 1 given in the ED Today patient endorses improvement of his shaking. On exam has mild tension tremor and facial tic. CIWA 1 Will discontinue scheduled phenobarbital and continue chlordiazepoxide 20 Mg p.o. 3 times daily Plan: ?Continue head of bed elevation 30 degrees ? Continue seizure precautions ? Continue aspiration precautions ? Neurochecks every 4 hourly - Continue IV thiamine and folic acid ? Discontinue phenobarbital 150 Mg IV 3 times daily ? Continue chlordiazepoxide 25 Mg p.o. Q8 hourly ? Patient extensively counseled on alcohol cessation. Patient agreed to stop 3. Newly diagnosed uncontrolled diabetes mellitus type 2 On admission patient's blood glucose 399. HbA1c 10.1% pH 7.46 and beta hydroxybutyrate 0.1. Urinalysis significant for 4+ glucose Patient received 2 L normal saline IVF bolus in the ED Lactic acid 7.6 down trended to 1.2 DKA and HHS ruled out due to normal pH and negative beta hydroxybutyrate. Patient has newly diagnosed uncontrolled DM type II Plan: - Low consistent carb diet ? Discontinued Ringer's lactate maintenance fluid 150 cc?HR as lactic acid now improved and patient tolerating p.o. fluids - Sliding scale insulin to cover for any glucose spikes 4. Possible alcoholic hepatitis 5. Coagulopathy?improving 6. Thrombocytopenia?improving 7. Elevated T. bili?worsening 8. Transaminitis?improving According to patient's he drinks 1 bottle of alcohol daily, she is unsure of which type. Since his father 1 year ago he started drinking alcohol heavily. On exam Valles sign was negative and patient has no abdominal pain PT 14.7, INR 1.4, APTT 29.7 improved to PT 13.9, INR 1.3, PTT 29.8 Plt 70 increased to PLT 75 Total bilirubin 4.3 increased to T. bili 5 AST 144, ALT 39, Alp 285, LDH 255 improved to AST 131, ALT 38, ALP 251 U tox positive for alcohol Gallbladder ultrasound significant for hepatomegaly 21 cm with fatty infiltration of the liver DDx: Alcoholic hepatitis, autoimmune hepatitis, Huang disease, hemochromatosis Madrey score : 25.9. Good prognosis Meld?NA score: 21 points; 7-10% estimated 90-day mortality Child-Roa ; class B. Indication for transplant evaluation. Abdominal surgery perioperative mortality 30%. Plan: ? Will avoid Tylenol or NSAIDs at this point ? Pending results for autoimmune hepatitis including IgG,BENOIT, LKM1,ALC1, ceruloplasmin, iron panel and ferritin 7. Normocytic anemia 8. Hypokalemia?resolved 9. Hypomagnesemia?resolved 10. Pseudohyponatremia?resolved 11. Hypocholoremia?resolving 12. Hypophosphatemia On admission patient Hb 11.1, MCV 81. No previous labs available for comparison K3.3 and Mg 1.5, Cl 86 improved to K4.3, Mg 2.2, CL 90 NA 124 and corrected NA 131 Phos 2.3 Iron panel normal with increased ferritin, 1447. Ferritin was likely increased due to alcoholic hepatitis Plan: -Repleted with 1 packet Neutra-Phos x 1 13. Hyperlipidemia 14. Hypertriglyceridemia Lipid panel significant for cholesterol 348, triglyceride 543, HDL 11 Patient's deranged liver enzymes will start on low-dose statin for now. Plan: ? Start on atorvastatin 20 Mg p.o. at bedtime Health maintenance: Disposition: On scheduled Librium for alcohol withdrawal. Diet: Low consistent carb Lines: pIVs GI Prophylaxis: Pantoprazole Thrombo Prophylaxis: SCDs Code status: FULL CODE Plan of care discussed with Attending Dr. Peraza and PGY3 Dr. Rabia Hilliard MD PGY 1 Attending Provider Attestation/Addendum Oneil, Bisi Peraza DO, attest that I was physically present for the gomez portions of the service and evaluated the patient with the resident and I reviewed and discussed the case with the resident and agree with the resident's findings and plans of care as documented above Patient seen eval this a.m. is at bedside. CIWA score of 1 with mild tremor in his bilateral hands. Patient denies any visual, tactile or auditory hallucinations. He denies any anxiety. Patient has been responding well to phenobarbital will discontinue phenobarbital at this time and continue with Librium and taper as tolerated. Patient counseled on cessation of alcohol use and made aware of his diagnosis of diabetes again. Reviewed lipid panel with patient and start patient on atorvastatin 20 mg due to transaminitis. Will increase dose once LFTs improved. LFTs are elevated likely secondary to acute alcoholic hepatitis. Will continue to monitor for withdrawals. Anticipate discharge in the next 24 to 48 hours.
--- NOTE | 2024-03-07 10:10 | PC.SS ---
This is 38-year-old, , male who presented to the ED due to suffering from high blood pressure and uncontrolled sugars. Patient appeared alert and oriented to self, place and situation. Patient reported that he resides at home with his and two children. Patient is independent with all ADLs, no DME use. Patient reported drinking 4 to 5 beers per day. Patient reported that his last drink was on 03/05/2024 due to feeling ill. He requested information about AA. Patient does not have a PCP. Patient assigned his , Rita Mondragon, as his medical decision maker. When medically clear, patient will return home. Discharge plan: home Next of kin: Rita Recinos., .
[2024-03-07] MEDS: NAPH,KPH MBDB 1 PACKET (1.5 GM) PO (10:21)
[2024-03-07] MEDS: RINGERS LACTATED 1000 ML 1,000 ML 999 ML IV (11:19)
[2024-03-07] MEDS: ATORVASTATIN CALCIUM 20 MG TABLET PO (21:02)
[2024-03-08] VITALS (7 sets, daily range): BP systolic 111–122; BP diastolic 76–91; PULSE 80–155; RESP 16–97; TEMP 36.2–36.6; O2SAT 95–97; BMI 26.6
[2024-03-08] MEDS: chlordiazePOXIDE HCl 25 MG CAPSULE PO (05:16)
[2024-03-08 05:56] LABS: Basophils # (Auto) 0.1 Thou/mm3 (0.0-0.2); Basophils % (Auto) 2 % (0-2.5); Eosinophils # (Auto) 0.2 Thou/mm3 (0.0-0.5); Eosinophils % (Auto) 3 % (0-10); Hematocrit 28.9 % (41.0-53.0); Hemoglobin 10.1 g/dL (13.5-16.0); Immature Granulocytes % (Auto) 0 % (0-0); Immature Granulocytes Auto 0.03 Thou/mm3 (0.00-0.00); Lymphocytes # (Auto) 2.2 Thou/mm3 (1.0-4.8); Lymphocytes % (Auto) 26 % (10-50); Mean Corpuscular HGB Conc 34.9 g/dl (31.0-37.0); Mean Corpuscular Hemoglobin 29.4 pg (25.0-35.0); Mean Corpuscular Volume 84 fL (80-100); Monocytes # (Auto) 0.8 Thou/mm3 (0.0-0.8); Monocytes % (Auto) 9 % (0-12); Neutrophils % (Auto) 60 % (37-80); Nucleated Red Blood Cell # 0.11 Thou/mm3 (0.00-0.00); Nucleated Red Blood Cell % 1 /100 WBC (0); RDW Standard Deviation 43.6 fL (35.1-43.9); Red Blood Count 3.43 Miln/mm3 (4.50-5.90); White Blood Count 8.3 Thou/mm3 (3.8-10.6)
[2024-03-08 06:03] LABS: Platelet Count 74 Thou/mm3 (140-440)
[2024-03-08 06:04] LABS: Slide Review Platelets confirmed
[2024-03-08 06:34] LABS: Alanine Aminotransferase 25 U/L (10-49); Albumin, Serum 3.4 gm/dL (3.5-5.0); Albumin/Globulin Ratio 0.8 (1.2-2.2); Alkaline Phosphatase 242 U/L (46-116); Anion Gap 7 (7-16); Aspartate Amino Transferase 95 U/L (0-34); BUN/Creatinine Ratio 9 Ratio (12-20); Bilirubin,Total 5.2 mg/dL (0.3-1.2); Blood Urea Nitrogen 6 mg/dL (9-23); Calcium 8.3 mg/dL (8.3-10.6); Calcium (Corrected) 8.8 mg/dL (8.5-10.1); Carbon Dioxide 26.6 mMol/L (20.0-31.0); Chloride 94 mMol/L (98-107); Creatinine (Component) 0.7 mg/dL (0.6-1.3); Estimated Creatinine Clearance 122.2 mL/min (>60); Globulin 4.1 gm/dL (2.3-3.5); Glucose 207 mg/dL (74-106); Magnesium 1.9 mg/dL (1.6-2.6); Osmolality,Calculated 260 (275-295); Phosphorous 2.4 mg/dL (2.4-5.1); Potassium 3.9 mMol/L (3.4-5.1); Sodium 128 mMol/L (136-145); Total Protein 7.5 gm/dL (5.7-8.2); eGFR > 60 See Note
[2024-03-08] MEDS: INSULIN LISPRO (AdmeLOG) 1 UNIT/0.01 ML UNIT SC ×2 (07:23→11:27)
--- NOTE | 2024-03-08 09:07 | PD.RESPRO ---
Documentation for date of: 03/08/24 Exam Vital Signs Temp Pulse Resp BP Pulse Ox O2 Del Method 97.2 F 103 H 16 113/86 H 97 Room Air 03/08/24 08:00 03/08/24 08:00 03/08/24 08:00 03/08/24 08:00 03/08/24 08:00 03/08/24 08:00 Objective Labs 03/08/24 04:45 03/08/24 04:45 Labs: Laboratory Results - last 24 hr 03/08/24 04:45 WBC 8.3 RBC 3.43 L Hgb 10.1 L Hct 28.9 L MCV 84 MCH 29.4 MCHC 34.9 RDW Std Deviation 43.6 Plt Count 74 L Neut % (Auto) 60 Lymph % (Auto) 26 [place] % (Auto) 9 Eos % (Auto) 3 Baso % (Auto) 2 Neut # (Auto) 5.0 Lymph # (Auto) 2.2 [place] # (Auto) 0.8 Eos # (Auto) 0.2 Baso # (Auto) 0.1 Immature Gran # (Auto) 0.03 H Absolute Nucleated RBC 0.11 H Immature Gran % 0 Nucleated RBC % 1 H Sodium 128 L Potassium 3.9 Chloride 94 L Carbon Dioxide 26.6 Anion Gap 7 BUN 6 L Creatinine 0.7 Estim Creat Clear Calc 122.2 eGFR > 60 BUN/Creatinine Ratio 9 L Glucose 207 H Calculated Osmolality 260 L Calcium 8.3 Corrected Calcium 8.8 Phosphorus 2.4 Magnesium 1.9 Total Bilirubin 5.2 H AST 95 H ALT 25 Alkaline Phosphatase 242 H Total Protein 7.5 Albumin 3.4 L Globulin 4.1 H Albumin/Globulin Ratio 0.8 L Misc Test Result Platelets confirmed ABG Interpretation ABG results: 03/06/24 15:10 ABG pH 7.46 H ABG pCO2 32 ABG pO2 93 ABG HCO3 23 ABG O2 Saturation 98 ABG Base Excess -1 Quality Measures Quality Measures none Assessment & Plan Assessment Current Active Medications: Generic Name Dose Route Start Last Admin Trade Name Freq PRN Reason Stop Dose Admin Albuterol/Ipratropium 3 ml 03/06/24 16:09 Albuterol/Ipratropium (Duoneb) Rt Johnna 3 Ml Nebu INH 04/05/24 16:08 Q2HR PRN SHORTNESS OF BREATH OR WHEEZE Atorvastatin Calcium 20 mg 03/07/24 21:00 03/07/24 21:02 Atorvastatin Calcium 20 Mg Tablet PO 04/06/24 20:59 20 mg HS ASHLEY Administration Chlordiazepoxide HCl 25 mg 03/06/24 17:45 03/08/24 05:16 Chlordiazepoxide Hcl 25 Mg Capsule PO 03/11/24 17:44 25 mg Q8HR ASHLEY Administration Dextrose 50 ml 03/06/24 16:17 Dextrose 50%-Water Inj 50 Ml Syringe IV 04/05/24 16:16 Q15MIN PRN BG <50 OR BG <70 & pt unresponsive Folic Acid 1 mg 03/06/24 16:15 03/07/24 08:16 Folic Acid Inj 1 Mg/0.2 Ml IVP 04/05/24 16:14 1 mg QDAY ASHLEY Administration Glucagon 1 mg 03/06/24 16:17 Glucagon Inj 1 Mg Vial IM Q15MIN PRN BG <70, and no IV access Insulin Glargine 10 unit 03/08/24 09:00 Insulin Glargine (Lantus) 5 Unit/0.05 Ml (Per 5 Units) SC 04/07/24 08:59 QDAY ASHLEY Insulin Human Lispro 0 unit 03/06/24 17:00 03/08/24 07:23 Insulin Lispro (Admelog) 1 Unit/0.01 Ml Unit SC 04/05/24 16:59 4 unit ACHS ASHLEY Administration Protocol Ondansetron HCl 4 mg 03/06/24 16:09 Ondansetron Inj 2 Mg/Ml Inj 2 Ml IV 04/05/24 16:08 Q6H PRN NAUSEA OR VOMITING Protocol Pantoprazole Sodium 40 mg 03/06/24 16:15 03/07/24 08:16 Pantoprazole Inj 40 Mg Vial IVP 04/05/24 16:14 40 mg QDAY ASHLEY Administration Thiamine HCl 100 mg 03/06/24 16:15 03/07/24 08:16 Thiamine Inj 100 Mg/Ml Vial 2 Ml IVP 04/05/24 16:14 100 mg QDAY ASHLEY Administration
[2024-03-08] MEDS: PANTOPRAZOLE INJ 40 MG VIAL IVP (09:50)
[2024-03-08] MEDS: THIAMINE INJ 100 MG/ML VIAL 2 ML IVP (09:50)
[2024-03-08] MEDS: INSULIN GLARGINE (Lantus) 5 UNIT/0.05 ML (PER 5 UNITS) 10 UNIT SC (09:54)
--- NOTE | 2024-03-08 10:05 | ESDS_ITS ---
<Statement entered by Bisi Peraza DO - 03/08/24 16:36> I, Bisi Peraza DO, attest that I was physically present for the gomez portions of the service and evaluated the patient with the resident and I reviewed and discussed the case with the resident and agree with the resident's findings and plans of care as documented above <Statement entered by Nicolás Camarillo MD - 03/08/24 16:11> I discussed with and supervised my co-resident involved in the care of this patient. I agree with the assessment and plan as documented above. Nicolás Camarillo,PGY-3 Disclaimer: Despite multiple revisions, due to the dictation software being used, the document below may not be free of grammatical errors including phonetic/typographic errors. However, this does not deter from our commitment to providing health care in the patient's best interest in mind. Planned Discharge Date 03/08/24 DS: Providers Provider Date of admission: 03/06/24 16:12 Primary care physician: Physician No Primary/Family Admitting Provider: Bisi Peraza DO Attending Provider on Admission: Bisi Peraza DO Consults: 03/06/24 18:39 Health Equity Referral - Knowledge Deficit Routine Comment: Positive screening for knowledge deficit needs. Health Equity Referral - Nutrition Routine Comment: Positive screening for nutrition needs. Health Equity Referral - Safety Routine Comment: Positive screening for safety needs. Health Equity Referral - Transportation Routine Comment: Positive screening for transportation needs. Health Equity Referral - Utilities Routine Comment: Positive screening for utility assistance needs. 03/06/24 18:41 Referral Registered Dietitian Routine Comment: 03/07/24 09:00 Referral Registered Dietitian Routine Comment: Newly diagnose uncontrolled diabetic Attending Provider on DC: Bisi Peraza DO Discharging Provider: Rusty Hilliard MD DS: Diagnosis Problem List Completed Was Problem List Reviewed/Reconciled?: Yes Hospital Course Hospital Course Hospital course: Patient is a 38-year-old male with past medical history significant for GERD. Patient presents today with a chief complaint of shaking. Patient will be admitted for alcohol withdrawal and new onset uncontrolled diabetes mellitus type 2. With regards to his alcohol withdrawal. Initially patient was treated with phenobarbital 260 Mg IV x 1 and then started on phenobarbital 150 Mg IV 3 times daily along with chlordiazepoxide 25 Mg p.o. Q8 hourly. Over the course of hospitalization patient's tremors and withdrawal symptoms improved. Patient was also given information about alcoholic Anonymous by the certified social workers in health care. Today his CIWA is 1 and patient wants to be discharged to go to his son's birthday alliance party. For his newly diagnosed uncontrolled diabetes mellitus type 2, patient was treated with IV fluids. He was also given diabetic education by registered dietitian. For his alcoholic hepatitis with thrombocytopenia and transaminitis. Tylenol and NSAIDs were avoided and LFTs were trended which gradually improved over the course of hospitalization. Gallbladder ultrasound was done which was significant for hepatomegaly and fatty infiltration of the liver. Hepatitis screen was ordered which was negative. Autoimmune screen was ordered to rule out other etiologies of hepatitis. Patient should follow-up with his PCP outpatient for results. With regards to his hyperlipidemia and hypertriglyceridemia patient was started on low-dose atorvastatin 20 Mg p.o. at bedtime. All patient's labs are now returning to baseline. Patient is now clinically stable and fit for discharge to home with self-care. Discharge diagnoses: 1. Alcohol withdrawal?resolving 2. Alcohol use disorder 3. Newly diagnosed uncontrolled diabetes mellitus type 2 [10.1%] 4. Alcoholic hepatitis 5. Coagulopathy?improving 6. Thrombocytopenia?chronic 7. Elevated T.bili?improving 8. Transaminitis?improving 7. Normocytic anemia?chronic 8. Hypokalemia?resolved 8. Hypomagnesemia?resolved 10. Pseudohyponatremia?resolved 11. Hypochloremia?resolving 12. Hypophosphatemia?resolved 13. Hyperlipidemia 14. Hypertriglyceridemia Discharge plan: - We have started you on a medication chlordiazepoxide. take 1 tablet up to twice a day for symptoms of alcohol withdrawal. - We have started you on a medication Metformin for your diabetes. Please take 1 tablet twice a day. - We have started you on a medication Atorvastatin for your high cholesterol. Take one tablet at night. - We have started you on vitamins, Thiamine and Folic acid. Please take 1 tablet each, once a day. - Please follow up with alcoholic anonymous meetings. - Please follow up with your primary doctor or [facility] if you cannot get an appointment to see your primary doctor in time. - If you experience any new, worsening or persistent symptoms, either call your primary doctor, laina [phone] or present to the emergency department. We are grateful to be able to participate in Mr. Moran's care. We wish him the best. Plan of care discussed with Attending Dr. Peraza and PGY3 Dr. Rabia Hilliard MD PGY 1 Time Spent with Patient Time attestation: Total time spent providing and/or coordinating discharge services: Time spent: Greater than 30 minutes (37) Exam Vital Signs Temp Pulse Resp BP Pulse Ox O2 Del Method 97.2 F 103 H 16 113/86 H 97 Room Air 03/08/24 08:00 03/08/24 08:00 03/08/24 08:00 03/08/24 08:00 03/08/24 08:00 03/08/24 08:00 Narrative Exam Constitutional Alert, oriented x 3 and comfortable. Young male, scleral icterus, facial tic HEENT Vision grossly intact. Patent nares. Trachea midline. Poor dentition Respiratory Chest normal on inspection and clear auscultation bilaterally Cardiovascular S1 and S2 audible, RRR. No murmurs carotid bruit. No gross JVD. Abdominal Soft, obese and non tender to palpation in all quadrants. BS + Genitourinary No bladder tenderness, no flank pain. Normal to palpation Musculoskeletal Extremities tone within normal limits. No LE edema. Neurological CN II - XII grossly intact. Extremity motor and sensation grossly intact. Asterixis negative, intention tremor?improved. CIWA 0 Skin Warm, dry and intact. No apparent lesions. Psychiatric Patient has good affect, is cooperative Discharge Plan Plan Patient Disposition: HOME (Self Care) Patient condition on transfer: Stable Care Plan Goals: - We have started you on a medication chlordiazepoxide. take 1 tablet up to twic e a day for symptoms of alcohol withdrawal. - We have started you on a medication Metformin for your diabetes. Please take 1 tablet twice a day. - We have started you on a medication Atorvastatin for your high cholesterol. Take one tablet at night. - We have started you on vitamins, Thiamine and Folic acid. Please take 1 tablet each, once a day. - Please follow up with alcoholic anonymous meetings. - Please follow up with your primary doctor or [facility] if you cannot get an appointment to see your primary doctor in time. - If you experience any new, worsening or persistent symptoms, either call your primary doctor, diall 911 or present to the emergency department. Prescriptions/Referrals Prescriptions/Med Rec: New chlordiazepoxide HCl 25 mg Capsule 25 mg PO Q12H MDD 2-3 per day PRN (Reason: alcohol withdrawal) Qty: 7 0RF metformin 500 mg tablet 500 mg PO BID 30 Days Qty: 60 1RF atorvastatin 40 mg tablet 40 mg PO QDAY Qty: 30 0RF thiamine HCl (vitamin B1) 100 mg tablet 100 mg PO QDAY Qty: 30 0RF folic acid 400 mcg tablet 0.4 mg PO QDAY 30 Days Qty: 30 0RF Referrals: No Primary/Family,Physician [Primary Care Provider] - Rusty Hilliard MD [Resident] - Patient/Caregiver Discharge Instructions Discharge Activity: as per the cardiac rehab Education Materials: Alcoholism Resources, Alcohol Withdrawal: What to Expect, Diabetes Exercise Plan, Diabetes: Meal Planning, Diabetes Carbs Fats Protein Print Language: Luxembourger Stand Alone Forms: Erika Award Info., Patient Portal Info Letter Discharge Order Discharge Orders: Discharge (Routine); Ordered 03/08/24 Ordered By: Nicolás Camarillo Quality Discharge Quality Measures VTE prophylaxis
[2024-03-08] MEDS: FOLIC ACID INJ 1 MG/0.2 ML IVP (10:09)
[2024-03-19 03:06] LABS: Sm Antibody <1.0 NEG AI (<1.0 NEGATIVE)
[2024-03-19 06:51] LABS: ANA Screen, IFA NEGATIVE (NEGATIVE); Ceruloplasmin* 20 mg/dL (14-30); IgG, Serum* 2059 mg/dL (600-1640); LKM-1 Antibody (IgG)* <20.0 U; Sm/RNP Antibody <1.0 NEG AI (<1.0 NEGATIVE)
== END 2024-03-08 13:17 | disposition home or self-care (01) | DRG 775 ==
LOC: SERX 15:37 → SERHOLD 16:25 → S2NX 21:35
PROVIDERS: Registered Nurse General Practice; Student in an Organized Health Care Education/Training Program; Admitting Provider Internal Medicine; Emergency Provider Emergency Medicine; Visit Provider Internal Medicine
DX: F10.239 Alcohol dependence with withdrawal, unspecified (principal); Y90.4 Blood alcohol level of 80-99 mg/100 ml; D69.6 Thrombocytopenia, unspecified; E11.65 Type 2 diabetes mellitus with hyperglycemia; D64.9 Anemia, unspecified; E87.6 Hypokalemia; E83.42 Hypomagnesemia; K21.9 Gastro-esophageal reflux disease without esophagitis; D68.9 Coagulation defect, unspecified; E83.39 Other disorders of phosphorus metabolism; E78.1 Pure hyperglyceridemia; K70.10 Alcoholic hepatitis without ascites; E87.8 Other disorders of electrolyte and fluid balance, not elsewhere classified; K76.0 Fatty (change of) liver, not elsewhere classified
CPT/HCPCS: 36415; 36600; 76705; 80053; 80061; 80074; 80307; 80320; 81001; 82010; 82248; 82390; 82607; 82728; 82746; 82784; 82803; 82947; 83036; 83540; 83550; 83605; 83615; 83735; 83880; 84100; 84443; 84484; 85025; 85610; 85730; 86038; 86235; 86376; 93005; 96365; 96372; 96375; 99285; J1815; J2470; J2560; J3360; J3411; J3475; J3490; J7030; J7050; J7120; A9270; G0480